=== PATIENT | male | born 1985 | race Caucasian/White ===

== ENCOUNTER 2019-04-01 22:35 | Emergency (ER) | payer OTHER ==
[2019-04-01 22:45] VITALS: TEMP 98.5; BMI 23.7
[2019-04-01] MEDS ORDERED: ASPIRIN 81 MG CHEWABLE TABLETS PO ONE (23:12)
[2019-04-01] MEDS ORDERED: SODIUM CHLORIDE 0.9% 500 ML INFUS.BAG IV ONE (23:23)
--- NOTE | 2019-04-01 23:32 | PDOC ---
History of Present Illness - General Chief Complaint: Lightheaded Stated Complaint: LIGHT HEADED Time Seen by Provider: 04/01/19 22:55 History Source: Patient Exam Limitations: No Limitations - History of Present Illness Initial Comments: 04/01/19 23:24 [id number] with h/o HIV (last CD4 1-2 months ago was 1000, takes Biktarvy HAART), depression and anxiety (on Zoloft and prn Ativan) who p/w rapid irregular palpitations, SOB, foggy-headedness, and mild chest heaviness/tightness which started randomly tonight at about 8:30 pm. He smoked marijuana earlier this evening but denies a chance it may be laced with anything else because he bought it from a shop. He has never had these symptoms before. He has otherwise been feeling well lately without f/c/n/v/d/c, abdominal pain, cough, sore throat , headache, or any other symptoms. Past History - Past Medical History Allergies/Adverse Reactions: Allergies Allergy/AdvReac Type Severity Reaction Status Date / Time No Known Allergies Allergy Verified 04/01/19 22:45 COPD: No - Suicide/Smoking/Psychosocial Hx Smoking History: Never smoked Have you smoked in the past 12 months: No Information on smoking cessation initiated: No Hx Alcohol Use: No Drug/Substance Use Hx: No Review of Systems - Review of Systems Able to Perform ROS?: Yes Comments:: 04/01/19 23:27 GEN: no fever, chills, malaise, generalized weakness, or weight change HEENT: no ear pain, sore throat, vision change, or eye pain CV: chest pain, palpitations, lightheadedness, syncope, or edema RESP: SOB, no cough, or wheezing GI: no abdominal pain, nausea, vomiting, diarrhea, constipation, or white/black/ bloody stool : no dysuria, hematuria, incontinence, retention, bleeding, or discharge MSK: no neck/back pain, muscle weakness/pain, or joint swelling/pain NEURO: no headache, seizure, vertigo, numbness, tingling, or focal weakness PSYCH: marijuana use, no other substance use, no behavior change SKIN: no jaundice, no rash ROS otherwise negative except as noted in HPI *Physical Exam - Vital Signs Last Vital Signs Temp Pulse Resp BP Pulse Ox 98.5 F 66 12 123/97 100 04/01/19 22:42 04/02/19 04:50 04/02/19 04:50 04/02/19 04:50 04/02/19 04:50 - Physical Exam Comments: 04/01/19 23:45 GENERAL: nontoxic and well-appearing, A/Ox4, no distress, answers questions appropriately, friend at bedside HEENT: PERRLA, EOMI, moist mucous membranes NECK/BACK: no midline ttp, no spinal stepoff or deformity, no hematoma, full ROM , neck supple CARDIOVASCULAR: irregularly irregular and tachycardic, normal S1S2, no MGR, strong peripheral pulses, capillary refill <2 seconds, extremities wwp, no edema LUNGS/RESPIRATORY: no respiratory distress, CTAB GI/ABDOMEN: symmetric [id number], normoactive BS, soft, no ttp, no midline pulsatile masses : no CVA tenderness EXTREMITIES: no muscle atrophy, no acute deformity, no calf tenderness or swelling, no palpable cord SKIN: warm and dry, no pallor, no jaundice, no rash, no bruising, no skin breakdown, no cuts, no lesions NEUROLOGICAL: GCS 15, CN II-XII grossly intact, 5/5 strength proximally and distally, no facial droop Heart Score/ECG Review #1 04/01/19 23:02 A-fib with RVR rate of 161, normal axis, no pathologic ST elevation #2 04/02/19 03:45 NSR, rate 84, normal axis and intervals, no ST-T changes Moderate Sedation - Post Procedure Assessment Tolerated procedure well: Yes Complications [comment]: none Was a reversal agent used?: No Patient evaluation: Awake, alert and oriented, Vital signs reviewed, Cardiopulmonary exam normal, Pain controlled Printed Discharge Instructions given: Yes Procedures - Consent Consent obtained: Written, From Patient - Additional Procedures Additional Procedures: cardioversion/defib (synchronized electrical cardioversion) ED Treatment Course - LABORATORY CBC & Chemistry Diagram: 04/01/19 23:30 04/01/19 23:30 - ADDITIONAL ORDERS Additional order review: Laboratory Results 04/02/19 04/01/19 04/01/19 03:24 23:30 23:30 PT with INR INR Sodium Potassium Chloride Carbon Dioxide Anion Gap BUN Creatinine Est GFR (CKD-EPI)AfAm Est GFR (CKD-EPI)NonAf Random Glucose Calcium Magnesium Total Bilirubin AST ALT Alkaline Phosphatase Creatine Kinase Creatine Kinase Index CK-MB (CK-2) Troponin I < 0.02 B-Natriuretic Peptide Total Protein Albumin TSH 3.90 H Urine Color Urine Appearance Urine pH Ur Specific [place] Urine Protein Urine Glucose (UA) Urine Ketones Urine Blood Urine Nitrite Urine Bilirubin Urine Urobilinogen Ur Leukocyte Esterase Urine WBC (Auto) Urine RBC (Auto) Urine Casts (Auto) U Epithel Cells (Auto) Urine Bacteria (Auto) Blood Type A POSITIVE Antibody Screen Negative 04/01/19 04/01/19 04/01/19 23:30 23:30 23:30 PT with INR 11.90 INR 1.01 Sodium 140 Potassium 3.8 Chloride 107 Carbon Dioxide 27 Anion Gap 6 L BUN 19.0 H Creatinine 1.3 Est GFR (CKD-EPI)AfAm 82.51 Est GFR (CKD-EPI)NonAf 71.19 Random Glucose 94 Calcium 8.8 Magnesium 2.3 Total Bilirubin 0.7 AST 30 ALT 30 Alkaline Phosphatase 66 Creatine Kinase 312 H Creatine Kinase Index 0.3 CK-MB (CK-2) < 1.0 Troponin I < 0.02 B-Natriuretic Peptide 57.1 Total Protein 7.9 Albumin 4.4 TSH Urine Color Yellow Urine Appearance Clear Urine pH 6.5 Ur Specific [place] 1.007 L Urine Protein Negative Urine Glucose (UA) Negative Urine Ketones Negative Urine Blood Negative Urine Nitrite Negative Urine Bilirubin Negative Urine Urobilinogen 0.2 Ur Leukocyte Esterase Trace Urine WBC (Auto) 2 Urine RBC (Auto) 1 Urine Casts (Auto) 0 U Epithel Cells (Auto) 0.2 Urine Bacteria (Auto) 2.9 Blood Type Antibody Screen 04/01/19 23:30 RBC 4.91 MCV 95.1 MCHC 34.6 RDW 13.7 MPV 8.1 Neutrophils % 43.6 Lymphocytes % 41.5 H Monocytes % 13.1 H Eosinophils % 1.3 Basophils % 0.5 - RADIOLOGY Radiology Studies Ordered: Category Date Time Status CHEST X-RAY PORTABLE* [RAD] Stat Radiology 04/01/19 22:55 Taken - Medications Given in the ED: ED Medications Discontinued Medications Generic Name Dose Route Start Last Admin Trade Name Freq PRN Reason Stop Dose Admin Aspirin 324 mg 04/01/19 23:12 04/02/19 00:15 Asa - PO 04/01/19 23:13 324 mg ONCE ONE Administration Procainamide HCl 1,000 mg/ 50 mls @ 50 mls/hr 04/01/19 23:36 04/02/19 00:30 Dextrose IVPB 04/02/19 00:35 1,000 mg/hr ASDIR ONE 50 mls/hr Administration Protocol 1,000 MG/HR Ketamine HCl 116 mg 04/02/19 02:41 04/02/19 03:28 Ketalar - 1.5 mg/kg (116 mg) 04/02/19 02:42 116 mg IVPUSH Administration ONCE ONE Sodium Chloride 1,000 ml 04/01/19 23:23 04/02/19 00:15 Normal Saline - IV 04/01/19 23:24 1,000 ml ONCE ONE Administration Sodium Chloride 1,000 ml 04/02/19 03:44 04/02/19 03:50 Normal Saline - IV 04/02/19 03:45 1,000 ml ONCE ONE Administration Medical Decision Making - Medical Decision Making 04/01/19 23:49 Adult male without h/o arrhythmia Pt p/w palpitations. Initial Vital Signs Temp Pulse Resp BP Pulse Ox 98.5 F 53 L 18 132/72 100 04/01/19 22:42 04/01/19 22:42 04/01/19 22:42 04/01/19 22:42 04/01/19 22:42 Exam: As noted in Physical Exam section. DDX IBNLT: tachyarrhythmia (e.g. SVT, re-entrant tachycardia, WPW, Brugada, long QT, AF/AFL w/ RVR, MAT, ventricular dysrhythmia), ischemia (ACS), structural heart condition (MVP, mitral stenosis, atrial enlargement, HOCM), anxiety/panic, hypoxia, hemorrhage/anemia, PE, bronchitis/PNA, sepsis/shock, tamponade, metabolic (e.g. DKA, hypoglycemia), thyroid condition, catecholamine surge (e.g. pheochromocytoma), anxiety/panic disorder, medication effect, substance use, etc. W/U ordered: Monitor EKG CXR CBCD CMP Mg Phos TSH Cardiac Panel UA UCx hCG TX ordered: IV O2 Pacer pads applied IVF Vagal maneuvers EKG: Reviewed; results as noted in ECG Review section. *Narrow, irregular, no consistent p-wave: AF with RVR, less likely AFL with variable conduction, or MAT. If MAT do not give antiarrhythmics, but treat underlying respiratory issues. Stable: long-acting AVN edith - diltiazem 15-20 mg/2 min, verapamil, beta- blockers, digoxin, amiodarone. Unstable: synchronized cardioversion 50-100-200 J, diltiazem, Mg, amiodarone The symptoms started <48 hours ago and therefore the Pt does not require AC before cardioversion. The Pt is stable currently (no AMS, pulmonary edema, severe chest pain, or sBP< 90). Therefore they do not require immediate defibrillation. However can follow [facility] aggressive ED cardioversion protocol with procainamide. TX ordered: ASA 324 mg PO for chest tightness, also procainamide 1 gm IVPB over 1 hour for chemical cardioversion. Repeat EKG: Reviewed; results as noted in ECG Review section. CXR: Nothing acute Laboratory Tests 04/01/19 04/01/19 04/01/19 23:30 23:30 23:30 WBC 5.8 RBC 4.91 Hgb 16.2 Hct 46.7 MCV 95.1 MCH 32.9 MCHC 34.6 RDW 13.7 Plt Count 208 MPV 8.1 Absolute Neuts (auto) 2.5 Neutrophils % 43.6 Lymphocytes % 41.5 H Monocytes % 13.1 H Eosinophils % 1.3 Basophils % 0.5 Nucleated RBC % 0 PT with INR 11.90 INR 1.01 Sodium Potassium Chloride Carbon Dioxide Anion Gap BUN Creatinine Est GFR (CKD-EPI)AfAm Est GFR (CKD-EPI)NonAf Random Glucose Calcium Magnesium Total Bilirubin AST ALT Alkaline Phosphatase Creatine Kinase Creatine Kinase Index CK-MB (CK-2) Troponin I B-Natriuretic Peptide Total Protein Albumin TSH Urine Color Yellow Urine Appearance Clear Urine pH 6.5 Ur Specific [place] 1.007 L Urine Protein Negative Urine Glucose (UA) Negative Urine Ketones Negative Urine Blood Negative Urine Nitrite Negative Urine Bilirubin Negative Urine Urobilinogen 0.2 Ur Leukocyte Esterase Trace Urine WBC (Auto) 2 Urine RBC (Auto) 1 Urine Casts (Auto) 0 U Epithel Cells (Auto) 0.2 Urine Bacteria (Auto) 2.9 Blood Type Antibody Screen 04/01/19 04/01/19 04/01/19 23:30 23:30 23:30 WBC RBC Hgb Hct MCV MCH MCHC RDW Plt Count MPV Absolute Neuts (auto) Neutrophils % Lymphocytes % Monocytes % Eosinophils % Basophils % Nucleated RBC % PT with INR INR Sodium 140 Potassium 3.8 Chloride 107 Carbon Dioxide 27 Anion Gap 6 L BUN 19.0 H Creatinine 1.3 Est GFR (CKD-EPI)AfAm 82.51 Est GFR (CKD-EPI)NonAf 71.19 Random Glucose 94 Calcium 8.8 Magnesium 2.3 Total Bilirubin 0.7 AST 30 ALT 30 Alkaline Phosphatase 66 Creatine Kinase 312 H Creatine Kinase Index 0.3 CK-MB (CK-2) < 1.0 Troponin I < 0.02 B-Natriuretic Peptide 57.1 Total Protein 7.9 Albumin 4.4 TSH 3.90 H Urine Color Urine Appearance Urine pH Ur Specific [place] Urine Protein Urine Glucose (UA) Urine Ketones Urine Blood Urine Nitrite Urine Bilirubin Urine Urobilinogen Ur Leukocyte Esterase Urine WBC (Auto) Urine RBC (Auto) Urine Casts (Auto) U Epithel Cells (Auto) Urine Bacteria (Auto) Blood Type A POSITIVE Antibody Screen Negative Vital Signs Temperature 98.5 F 04/01/19 22:42 Pulse Rate 154 H 04/01/19 23:12 Respiratory Rate 14 04/01/19 23:12 Blood Pressure 122/99 04/01/19 23:12 O2 Sat by Pulse Oximetry (%) 97 04/01/19 23:12 04/02/19 03:45 Conscious sedation with ketamine 1.5 mg/kg done with good effect. Synchronized electrical cardioversion done with 200J, converted to NSR rate 110. Patient emerged from conscious sedation without issue, tolerated procedure well. CHADS2-Vasc score: 0 The patient does not meet criteria for recommending anticoagulation at this time. Vital Signs Temperature 98.5 F 04/01/19 22:42 Pulse Rate 66 04/02/19 04:50 Respiratory Rate 12 04/02/19 04:50 Blood Pressure 123/97 04/02/19 04:50 O2 Sat by Pulse Oximetry (%) 100 04/02/19 04:50 The Pt has gotten significant relief of symptoms while in the ED. They do not have EKG or other workup findings concerning for life-threatening arrhythmia. The Pt is appropriate for discharge with close outpatient follow up. The Pt is comfortable with this plan and will follow up with their primary care provider in 1-3 days. They are given referral information for cardiology and instructed to f/u with them [facility]. Specific return precautions are discussed and they will come back to the ER if necessary. *DC/Admit/Observation/Transfer Diagnosis at time of Disposition: Atrial fibrillation with RVR - Discharge Dispostion Disposition: HOME Condition at time of disposition: Stable Decision to Admit order: No - Referrals Referrals: Del Clark MD [Staff Physician] - Varghese Nguyen MD [Staff Physician] - - Patient Instructions Printed Discharge Instructions: DI for Atrial Fibrillation Additional Instructions: You were seen in the ER for a heart arrhythmia called "atrial fibrillation with rapid ventricular response". We did an exam, laboratory work, EKGs, and a chest x-ray, and everything looked essentially normal. We did a procedure called "conscious sedation and electrical cardioversion" to fix your heart rhythm, and this worked well.. After our assessment, we do not believe you are having a medical emergency at this time, and we believe you are safe to go home. Please follow up with your primary care provider in 1-3 days. You also need to follow up with a circuit tester to discuss why this arrhythmia might have happened, and discuss the plan moving forward. We are giving you referral information for our favorite cardiologists, so please call their clinic, tell them you were seen in the ER, and tell them you need a follow-up. If you have any new or worsening symptoms, especially chest pain, shortness of breath, more palpitations, lightheadedness, fainting, or other emergency concerns, please come back to the ER at any time (24 hours a day). If you are having severe or life threatening symptoms, or symptoms that make it unsafe to drive or have someone drive you, please call 911. - Post Discharge Activity Forms/Work/School Notes: Back to Work
[2019-04-01] MEDS ORDERED: PROCAINAMIDE HCL 1,000 MG in DEXTROSE 5%-WATER - 48 ML IVPB ONE (23:36)
[2019-04-01 23:41] LABS: BASO % 0.5 % (0-2.0); EOS % 1.3 % (0-4.5); HEMATOCRIT 46.7 % (35.4-49); HEMOGLOBIN 16.2 GM/dL (11.7-16.9); LYMPH % 41.5 % (8-40); MCH 32.9 pg (25.7-33.7); MCHC 34.6 g/dl (32.0-35.9); MEAN CELL VOLUME 95.1 fl (80-96); MEAN PLT VOLUME 8.1 fl (7.5-11.1); MONO % 13.1 % (3.8-10.2); NEUT % 43.6 % (42.8-82.8); PLATELET COUNT 208 K/MM3 (134-434); RBC 4.91 M/mm3 (4.00-5.60); RDW 13.7 % (11.9-15.9); WHITE BLOOD COUNT 5.8 K/mm3 (4.0-10.0)
--- NOTE | 2019-04-01 23:49 | PDOC ---
Documentation entered by Joyce Oden SCRIBE, acting as scribe for Yrn Shaikh MD. Yrn Shaikh MD: This documentation has been prepared by the Cecille montelongo Adrianna, SCRIBE, under my direction and personally reviewed by me in its entirety. I confirm that the documentation accurately reflects all work, treatment, procedures, and medical decision making performed by me. Attending Attestation - Resident Resident Name: Evette Zurita - ED Attending Attestation I have performed the following: I have examined & evaluated the patient, The case was reviewed & discussed with the resident, I agree w/resident's findings & plan, Exceptions are as noted - HPI HPI: The patient is a 33 year old male, with a significant PMH marijuana use, HIV ( prior CD4 was ~2 months ago at 1000, on Biktarvy HAART), depression and anxiety , who presents to the ED for evaluation of palpitations, foggy-headedness, and shortness of breath that began 3 hours ago. Patient notes sudden onset chest palpitations with associated chest tightness. He additionally reports feeling foggy-headed, short of breath, and diaphoretic. Pt states that his palpitations began at 8:30 tonight. Did not have any palpitations prior to that. Patient notes he felt woozy since earlier this morning, but was completely fine yesterday. He reports transient episodes of chest palpitations in the past, which only lasted for a few seconds before resolving spontaneously. Patient admits to smoking marijuana earlier today, but denies any other drug use. Denies recent illness, fever, chills, nausea, vomit, diarrhea. Allergies: NKA, NKDA Surgical History: None reported Social History: Marijuana use (last use was earlier tonight) - Physicial Exam PE: GENERAL: Awake, alert, and fully oriented, in no acute distress. HEAD: No signs of trauma EYES: PERRLA, EOMI, sclera anicteric, conjunctiva clear ENT: Auricles normal inspection, hearing grossly normal, nares patent, oropharynx clear without exudates. Moist mucosa NECK: Nontender, no stepoffs, Normal ROM, supple, no lymphadenopathy, JVD, or masses LUNGS: Breath sounds equal, clear to auscultation bilaterally. No wheezes, and no crackles HEART: tachycardic, normal S1 and S2, no murmurs, rubs or gallops ABDOMEN: Soft, nontender, normoactive bowel sounds. No guarding, no rebound. No masses EXTREMITIES: Normal range of motion, no edema. No clubbing or cyanosis. No cords, erythema, or tenderness NEUROLOGICAL: Cranial nerves II through XII intact. 5/5 strength and sensation in all extremities, Normal speech, normal gait, normal cerebellar function SKIN: Warm, Dry, normal turgor, no rashes or lesions noted. - Critical Care Time Total Critical Care Time: 60 Critical Care Statement: The care of this patient involved high complexity decision making to prevent further life threatening deterioration of the patient 's condition and/or to evaluate & treat vital organ system(s) failure or risk of failure. - Medical Decision Making 04/01/19 23:51 33 M with new onset afib. Possibly paroxysmal as pt has had palpitations in the past that have resolved spontaneously. EKG today shows afib with RVR. Pt with stable BP, well appearing. Pt reports clear time of onset of palps at 8:30 tonight. Given onset <48 hours ago, will proceed with cardioversion per [facility] protocol. Pt with CHADSVASC score 0, no indication for AC at this time. - Labs - Procainamide 1gm over 1 hr - teletypesetter monitor 04/02/19 03:09 Labs wnl, trop negative Procainamide finished, without successful cardioversion. Pt consented for procedural sedation and electrical cardioversion 04/02/19 04:10 Pt sedated with ketamine Cardioverted 200J Repeat EKG with sinus rhythm Pt observed until return to baseline mentation Pt is well appearing, with normal vitals. Clinically stable for DC at this time. I discussed the physical exam findings, ancillary test results and final diagnoses with the patient. I answered all of the patient's questions. The patient was satisfied with the care received and felt comfortable with the discharge plan and treatment plan. The patient agrees to follow up with the primary care physician within 24-72 hours.
[2019-04-02] MEDS ORDERED: ASPIRIN 81 MG CHEWABLE TABLETS ONE (00:06)
[2019-04-02 00:13] LABS: ALBUMIN 4.4 g/dl (3.4-5.0); ALK PHOS 66 U/L (45-117); ANION GAP 6 MMOL/L (8-16); BILIRUBIN,TOTAL 0.7 mg/dL (0.2-1); CALCIUM 8.8 mg/dL (8.5-10.1); CHLORIDE 107 mmol/L (98-107); CO2 27 mmol/L (21-32); CREATININE 1.3 mg/dL (0.55-1.3); GLUCOSE,RANDOM 94 mg/dL (74-106); MAGNESIUM 2.3 mg/dL (1.8-2.4); N-TERMINAL BNP 57.1 pg/ml (5-125); POTASSIUM 3.8 mmol/L (3.5-5.1); SGOT/AST 30 U/L (15-37); SGPT/ALT 30 U/L (13-61); SODIUM 140 mmol/L (136-145); TOT PROT 7.9 g/dl (6.4-8.2)
[2019-04-02 00:27] LABS: INR 1.01 (0.83-1.09); PROTHROMBIN TIME (PATIENT) 11.9 SEC (9.7-13.0)
[2019-04-02 00:28] LABS: EPI CELLS 0.2 /HPF (0-5/HPF); HYALINE CASTS 0 /lpf (0-8); PH,URINE 6.5 (5.0-8.0); URINE APPEARANCE CLEAR; URINE BACTERIA 2.9 /hpf (NEGATIVE); URINE BILIRUBIN NEGATIVE (NEGATIVE); URINE COLOR YELLOW; URINE GLUCOSE (UA) NEGATIVE (NEGATIVE); URINE KETONE NEGATIVE (NEGATIVE); URINE LEUK ESTERASE TRACE (NEGATIVE); URINE NITRITE NEGATIVE (NEGATIVE); URINE PROTEIN NEGATIVE (NEGATIVE); URINE RBC 1 /hpf (0-4); URINE UROBILINOGEN 0.2 mg/dL (0.2-1.0); URINE WBC 2 /hpf (0-5)
[2019-04-02] MEDS ORDERED: KETAMINE HCL 200 MG/20 ML VIAL IVPUSH ONE (02:41)
[2019-04-02] MEDS ORDERED: KETAMINE HCL 200 MG/20 ML VIAL ONE (03:11)
[2019-04-02] MEDS ORDERED: LORazepam 2 MG/ML SDV VIAL ONE (03:36)
[2019-04-02] MEDS ORDERED: SODIUM CHLORIDE 0.9% 500 ML INFUS.BAG IV ONE (03:44)
[2019-04-02 05:51] VITALS: BP 123/97; PULSE 66
--- NOTE | 2019-04-02 10:34 | EKG ---
Test Reason : Blood Pressure : / mmHG Vent. Rate : 084 BPM Atrial Rate : 084 BPM P-R Int : 142 ms QRS Dur : 088 ms QT Int : 344 ms P-R-T Axes : 041 057 046 degrees QTc Int : 406 ms NORMAL SINUS RHYTHM SEPTAL INFARCT , AGE UNDETERMINED ABNORMAL ECG WHEN COMPARED WITH ECG OF 01-APR-2019 22:39, SINUS RHYTHM HAS REPLACED ATRIAL FIBRILLATION VENT. RATE HAS DECREASED BY 75 BPM SEPTAL INFARCT IS NOW PRESENT T WAVE INVERSION NO LONGER EVIDENT IN INFERIOR LEADS Confirmed by Brain Martins MD ([id number]) on 04/02/2019 10:33:59 AM Referred By: Confirmed By:Brain Martins MD
== END 2019-04-02 05:05 | disposition home or self-care (01) ==
LOC: JER 22:35
PROC: 3E033RZ Introduction of Antiarrhythmic into Peripheral Vein, Percutaneous Approach (ICD-10-PCS; principal; 2019-04-01)
PROC: 3E033FZ Introduction of Intracirculatory Anesthetic into Peripheral Vein, Percutaneous Approach (ICD-10-PCS; 2019-04-01)
PROC: 5A2204Z Restoration of Cardiac Rhythm, Single (ICD-10-PCS; 2019-04-01)
DX: I48.91 Unspecified atrial fibrillation (principal); F41.9 Anxiety disorder, unspecified; F32.9 Major depressive disorder, single episode, unspecified; Z21 Asymptomatic human immunodeficiency virus [HIV] infection status; F12.90 Cannabis use, unspecified, uncomplicated
CPT/HCPCS: 36415; 71045-TC-FY; 80053; 81003; 82550; 82553; 83735; 83880; 84443; 84484; 85025; 85610; 86850; 86900; 86901; 87086; 93005; 93010; 99284-25